=== PATIENT | male | born 1990 | race Caucasian/White ===

== ENCOUNTER 2016-10-30 14:09 | Emergency (ER) | payer BC ==
[2016-10-30 14:26] VITALS: RESP 16
[2016-10-30] MEDS ORDERED: ONDANSETRON 4 MG/2 ML VIAL IVP STA (16:57)
[2016-10-30] MEDS ORDERED: SODIUM CHLORIDE 0.9% 1,000 ML IV ONE (16:57)
[2016-10-30] MEDS ORDERED: MORPHINE SULFATE 4 MG/ML SYRINGE IVP STA (16:57)
[2016-10-30] MEDS ORDERED: KETOROLAC 30 MG/ML 1 ML VIAL IVP STA (16:57)
[2016-10-30] MEDS ORDERED: RX INFO: IV CONTRAST WAS GIVEN 1 EACH MISC MISCELLANE PRN (16:57)
[2016-10-30 17:29] LABS: Appearance,Urine Clear (Clear); Basophils % (A) 0 %; Bilirubin,Urine Negative (Negative); CH 32.6; CHCM 35.3; Eosinophils # (A) 0.1 k/uL (0-0.7); Eosinophils % (A) 1 %; Glucose,Urine (UA) Negative (Negative); HDW 2.67; HGB 15.3 gm/dL (13.0-17.5); Ketones,Urine 1+ (Negative); Leukocyte Esterase,Urine Negative (Negative); Luc # (Auto) 0.08; Luc % (Auto) 1; Lymphocytes # (A) 1.1 k/uL (1.0-4.8); Lymphocytes % (A) 11 %; MCHC 35.6 g/dL (31.0-37.0); MCV 92.6 fL (80.0-100.0); Mean Platelet Volume 7.9; Monocytes # (A) 0.3 k/uL (0-1.0); Monocytes % (A) 3 %; Neutrophils # (A) 8.4 k/uL (1.3-7.7); Neutrophils % (A) 84 %; Nitrite,Urine Negative (Negative); PH, Urine 6.5 (5.0-8.0); Protein,Urine Trace (Negative); RBC 4.65 m/uL (4.30-5.90); RDW 12.8 % (11.5-15.5); Specific Gravity,Urine 1.021 (1.001-1.035); UA Billing (MACRO vs. MICRO) CHEM; WBC (Perox) 9.74
[2016-10-30 17:46] LABS: ALT 37 U/L (21-72); AST 49 U/L (17-59); Alkaline Phosphatase 74 U/L (38-126); Anion Gap 12 mmol/L; Blood Urea Nitrogen 11 mg/dL (9-20); Calcium 9.7 mg/dL (8.4-10.2); Carbon Dioxide 23 mmol/L (22-30); Chloride 108 mmol/L (98-107); Glucose 79 mg/dL (74-99); Non-African American GFR(MDRD) >60 (>60 ml/min/1.73 sqM); Potassium 4.4 mmol/L (3.5-5.1); Sodium 143 mmol/L (137-145); Total Bilirubin 2.2 mg/dL (0.2-1.3); Total Protein 7.2 g/dL (6.3-8.2)
--- NOTE | 2016-10-30 18:30 | CT ---
EXAMINATION TYPE: CT abdomen pelvis w con DATE OF EXAM: 10/30/2016 COMPARISON: NONE HISTORY: Patient complains of LLQ pain. CT DLP: 954.2 mGycm Automated exposure control for dose reduction was used. TECHNIQUE: Helical acquisition of images was performed from the lung bases through the pelvis. CONTRAST: Performed without Oral Contrast and with IV Contrast, patient injected with 100 mL of Omnipaque 300. FINDINGS: Lung bases are clear. There is no pleural effusion. Heart size is normal. Liver spleen pancreas gallbladder appear normal. Bile ducts are not dilated. There is no adrenal mass . Kidneys show satisfactory contrast opacification. There is no hydronephrosis. There is no retroperi toneal adenopathy. There is no ascites. Appendix is not definitely seen. There is no sign of appendicitis. I see no inte stinal wall thickening. There are no dilated loops. Bladder distends smoothly. There are few phleboli ths in the pelvis. I see no pelvic mass. Lumbar spine is intact. IMPRESSION: NEGATIVE CT SCAN OF THE ABDOMEN AND PELVIS.
--- NOTE | 2016-10-30 19:34 | ED ---
Abdominal Pain HPI - General Chief Complaint: Abdominal Pain Stated Complaint: Abd Pain Time Seen by Provider: 10/30/16 16:20 Source: patient Mode of arrival: ambulatory Limitations: no limitations - History of Present Illness Initial Comments: 26-year-old male presenting for evaluation of lower abdominal pain since 12:30 this afternoon. He states he felt well this morning without any complaints however progressively developed the symptoms that were bilateral and suprapubic with associated nausea without vomiting. He further denies any fevers or chills , diarrhea or constipation, dysuria/hematuria, chest pain, shortness of breath. He states he has never had these symptoms before. No medications were taken prior to arrival to the ED. There is no history of abdominal surgeries. - Related Data Home Medications Medication Instructions Recorded Confirmed No Known Home Medications [No 10/30/16 10/30/16 Known Home Medications] Allergies Allergy/AdvReac Type Severity Reaction Status Date / Time No Known Allergies Allergy Verified 10/30/16 16:23 Review of Systems ROS Statement: Those systems with pertinent positive or pertinent negative responses have been documented in the HPI. ROS Other: All systems not noted in ROS Statement are negative. Constitutional: Denies: fever, chills Eyes: Denies: eye pain, eye discharge ENT: Denies: ear pain, throat pain Respiratory: Denies: cough, dyspnea, wheezes Cardiovascular: Denies: chest pain, palpitations Endocrine: Denies: fatigue, heat or cold intolerance Gastrointestinal: Reports: abdominal pain, nausea. Denies: vomiting, diarrhea, constipation, hematemesis, melena Genitourinary: Denies: urgency, dysuria, frequency, hematuria Musculoskeletal: Denies: back pain, arthralgia Skin: Denies: rash, lesions Neurological: Denies: headache, weakness Psychiatric: Denies: anxiety, depression Hematological/Lymphatic: Denies: easy bleeding, easy bruising Past Medical History Past Medical History: No Reported History History of Any Multi-Drug Resistant Organisms: None Reported Past Surgical History: No Surgical Hx Reported Past Psychological History: No Psychological Hx Reported Smoking Status: Never smoker Past Alcohol Use History: None Reported Past Drug Use History: None Reported General Exam Limitations: no limitations General appearance: alert, in no apparent distress Head exam: Present: atraumatic, normocephalic, normal inspection Eye exam: Present: normal appearance, PERRL, EOMI. Absent: scleral icterus, conjunctival injection, periorbital swelling ENT exam: Present: normal exam, mucous membranes moist Neck exam: Present: normal inspection. Absent: tenderness, meningismus, lymphadenopathy Respiratory exam: Present: normal lung sounds bilaterally. Absent: respiratory distress, wheezes, rales, rhonchi, stridor Cardiovascular Exam: Present: regular rate, normal rhythm, normal heart sounds. Absent: systolic murmur, diastolic murmur, rubs, gallop, clicks GI/Abdominal exam: Present: soft, tenderness. Absent: distended, guarding, rebound, rigid Rectal exam: Present: deferred exam: Present: normal inspection, circumcision. Absent: testicular tenderness, urethral discharge, scrotal swelling, vertical testicular lie Extremities exam: Present: normal inspection, full ROM, normal capillary refill. Absent: tenderness, pedal edema, joint swelling, calf tenderness Back exam: Present: normal inspection Neurological exam: Present: alert, oriented X3, CN II-XII intact Psychiatric exam: Present: normal affect, normal mood Skin exam: Present: warm, dry, intact, normal color. Absent: rash Course Vital Signs 10/30/16 10/30/16 14:25 19:42 Temperature 97.8 F 97.6 F Pulse Rate 88 74 Respiratory 16 16 Rate Blood Pressure 138/76 112/55 O2 Sat by Pulse 99 99 Oximetry Medical Decision Making - Medical Decision Making 26-year-old with no past medical or surgical history presented for evaluation of suprapubic and bilateral lower quadrant abdominal pain that started at 12:30 this afternoon. On physical examination he only has mild tenderness to palpation in the lower quadrants worse on the left compared to the right however the abdomen is soft without peritoneal signs of guarding, rigidity, or rebound. Testicular exam reveals no left or right inguinal hernias and bilateral testicles with normal lie and without tenderness. Remainder of his physical exam is benign. Labs are obtained which revealed no significant abnormalities and CT abdomen and pelvis showed no acute process. The patient was reevaluated and had improvement in his symptoms. Through shared decision making it was determined that he be discharged with instructions to follow-up with his primary care physician but to return to this facility if symptoms should worsen or persist. The patient acknowledged an understanding of this information and agreed with this plan of care. - Lab Data Result diagrams: 10/30/16 17:15 10/30/16 17:15 Lab Results 10/30/16 10/30/16 10/30/16 Range/Units 17:15 17:15 17:15 WBC 10.0 (3.8-10.6) k/uL RBC 4.65 (4.30-5.90) m/uL Hgb 15.3 (13.0-17.5) gm/dL Hct 43.0 (39.0-53.0) % MCV 92.6 (80.0-100.0) fL MCH 33.0 (25.0-35.0) pg MCHC 35.6 (31.0-37.0) g/dL RDW 12.8 (11.5-15.5) % Plt Count 262 (150-450) k/uL Neutrophils % 84 % Lymphocytes % 11 % Monocytes % 3 % Eosinophils % 1 % Basophils % 0 % Neutrophils # 8.4 H (1.3-7.7) k/uL Lymphocytes # 1.1 (1.0-4.8) k/uL Monocytes # 0.3 (0-1.0) k/uL Eosinophils # 0.1 (0-0.7) k/uL Basophils # 0.0 (0-0.2) k/uL Sodium 143 (137-145) mmol/L Potassium 4.4 (3.5-5.1) mmol/L Chloride 108 H (98-107) mmol/L Carbon Dioxide 23 (22-30) mmol/L Anion Gap 12 mmol/L BUN 11 (9-20) mg/dL Creatinine 1.10 (0.66-1.25) mg/dL Est GFR (MDRD) Af Amer >60 (>60 ml/min/1.73 sqM) Est GFR (MDRD) Non-Af >60 (>60 ml/min/1.73 sqM) Glucose 79 (74-99) mg/dL Calcium 9.7 (8.4-10.2) mg/dL Total Bilirubin 2.2 H (0.2-1.3) mg/dL AST 49 (17-59) U/L ALT 37 (21-72) U/L Alkaline Phosphatase 74 (38-126) U/L Total Protein 7.2 (6.3-8.2) g/dL Albumin 4.3 (3.5-5.0) g/dL Lipase 172 (23-300) U/L Urine Color Yellow Urine Appearance Clear (Clear) Urine pH 6.5 (5.0-8.0) Ur Specific [place] 1.021 (1.001-1.035) Urine Protein Trace H (Negative) Urine Glucose (UA) Negative (Negative) Urine Ketones 1+ H (Negative) Urine Blood Negative (Negative) Urine Nitrite Negative (Negative) Urine Bilirubin Negative (Negative) Urine Urobilinogen 3.0 (<2.0) mg/dL Ur Leukocyte Esterase Negative (Negative) Disposition Clinical Impression: Abdominal pain Disposition: HOME SELF-CARE Instructions: Abdominal Pain (ED) Referrals: Vijay Noonan MD [Primary Care Provider] - 1-2 days Time of Disposition: 19:34
[2016-10-30 19:43] VITALS: BP 112/55; PULSE 74; TEMP 97.6
== END 2016-10-30 19:47 | disposition home or self-care (01) ==
LOC: EC 14:09
DX: R10.31 Right lower quadrant pain (principal); R10.32 Left lower quadrant pain; R11.0 Nausea
CPT/HCPCS: 99284 ×2; 96374 ×2; 96375 ×3; 96361 ×2; 36415; 80053; 83690; 85025; 81003; 74177; J2270; J2405; J1885; Q9967

== ENCOUNTER 2017-01-03 10:13 | Emergency (ER) | payer BC ==
[2017-01-03 10:16] VITALS: TEMP 98.1
[2017-01-03] MEDS ORDERED: KETOROLAC 60 MG/2 ML VIAL IM STA (10:36)
--- NOTE | 2017-01-03 10:39 | ED ---
General Adult HPI - General Chief complaint: Chest Pain Stated complaint: chest pain Time Seen by Provider: 01/03/17 10:15 Source: patient, RN notes reviewed Mode of arrival: wheelchair Limitations: no limitations - History of Present Illness Initial comments: This is a 26-year-old male who presents emergency Department complaining of a 2 day history of left-sided neck pain and a one-day history of left-sided chest pain. Patient states on Sunday he woke up with what he thought to be a stiff neck hurts to touch her to twist his neck. Patient states this morning he woke up and had chest pain on the left side worse with palpation and definitely worse with twisting. Patient states he lays still it doesn't hurt that bad but if he takes a deep breath or twists the pain definitely increases. Patient states he is not short of breath but it is painful to breathing so he does not take a full breath. Patient denies any fever chills or cough. Patient denies any smoking history. Patient denies any recent injury or trauma that he knows of. 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 Patient states on Sunday he was fine. Patient denies any abdominal pain patient denies nausea vomiting diarrhea. Patient states pressing on the side of his neck or chest reproduces the pain entirely - Related Data Home Medications Medication Instructions Recorded Confirmed Aspirin EC [Ecotrin] 325 mg PO ONCE PRN 01/03/17 01/03/17 Previous Rx's Medication Instructions Recorded Ibuprofen [Motrin] 600 mg PO Q6HR PRN #20 tab 01/03/17 Allergies Allergy/AdvReac Type Severity Reaction Status Date / Time No Known Allergies Allergy Verified 01/03/17 10:42 Review of Systems ROS Statement: Those systems with pertinent positive or pertinent negative responses have been documented in the HPI. ROS Other: All systems not noted in ROS Statement are negative. Past Medical History Past Medical History: No Reported History History of Any Multi-Drug Resistant Organisms: None Reported Past Surgical History: No Surgical Hx Reported Past Psychological History: No Psychological Hx Reported Smoking Status: Never smoker Past Alcohol Use History: None Reported Past Drug Use History: None Reported General Exam - General Exam Comments Initial Comments: GENERAL: Patient is well-developed and well-nourished. Patient is nontoxic and well- hydrated and is in mild distress. ENT: Neck is soft and supple. No significant lymphadenopathy is noted. Oropharynx is clear. Moist mucous membranes. Palpating the left sternocleidomastoid muscle reproduces his neck pain. EYES: The sclera were anicteric and conjunctiva were pink and moist. Extraocular movements were intact and pupils were equal round and reactive to light. Eyelids were unremarkable. PULMONARY: Unlabored respirations. Good breath sounds bilaterally. No audible rales rhonchi or wheezing was noted. CARDIOVASCULAR: There is a regular rate and rhythm without any murmurs gallops or rubs. Patient 's chest pain is reproducible on palpation ABDOMEN: Soft and nontender with normal bowel sounds. No palpable organomegaly was noted. There is no palpable pulsatile mass. SKIN: Skin is clear with no lesions or rashes and otherwise unremarkable. NEUROLOGIC: Patient is alert and oriented x3. Cranial nerves II through XII are grossly intact. Motor and sensory are also intact. Normal speech, volume and content. Symmetrical smile. MUSCULOSKELETAL: Normal extremities with adequate strength and full range of motion. LYMPHATICS: No significant lymphadenopathy is noted PSYCHIATRIC: Normal psychiatric evaluation. Normal interpersonal interactions appears functionally intact in deals appropriately with others. No signs of depression. No signs of anxiety. Limitations: no limitations Course Vital Signs 01/03/17 01/03/17 01/03/17 10:15 11:10 11:14 Temperature 98.1 F Pulse Rate 78 74 Respiratory 20 20 20 Rate Blood Pressure 126/78 128/74 O2 Sat by Pulse 100 100 Oximetry Medical Decision Making - Medical Decision Making EKG shows normal sinus rhythm at 80 bpm DE interval is on a 42 QRS is 88 QT interval 384 QTC is 442. Patient's EKG shows no ST segment elevation or depression or T-wave abnormality is noted. Chest x-ray shows no acute abnormality. Disposition Clinical Impression: Musculoskeletal chest pain Disposition: HOME SELF-CARE Condition: Good Instructions: Chest Wall Pain (ED) Prescriptions: Ibuprofen [Motrin] 600 mg PO Q6HR PRN #20 tab PRN Reason: For pain Referrals: Vijay Noonan MD [Primary Care Provider] - 1-2 days Time of Disposition: 11:32
--- NOTE | 2017-01-03 11:04 | XR ---
EXAMINATION TYPE: XR chest 2V DATE OF EXAM: 01/03/2017 COMPARISON: NONE HISTORY: Chest pain TECHNIQUE: Frontal and lateral views of the chest are obtained. FINDINGS: There is no focal air space opacity. No evidence for pneumothorax. No pleural effusion. The cardiac silhouette size is within normal limits. The osseous structures are grossly intact. IMPRESSION: 1. No acute cardiopulmonary process.
[2017-01-03 11:46] VITALS: BP 127/77; PULSE 77; RESP 16
== END 2017-01-03 11:46 | disposition home or self-care (01) ==
LOC: EC 10:13
DX: R07.89 Other chest pain (principal); M54.2 Cervicalgia
CPT/HCPCS: 93005; 71020; 99285; 96372; J1885

== ENCOUNTER → 2022-02-24 | Outpatient (CLI) | payer BC ==
--- NOTE | 2022-02-24 07:49 | US ---
EXAMINATION TYPE: US abdomen limited DATE OF EXAM: 02/24/2022 COMPARISON: CT abdomen and pelvis 2017 CLINICAL HISTORY: R10.9 ABD PAIN. TECHNIQUE: Multiple sonographic images of the left upper quadrant are obtained. FINDINGS: EXAM MEASUREMENTS: Spleen: 11.8 cm Left Kidney: 10.0 x 4.8 x 4.9 cm ACCESS REP NOTES: 1. Spleen: wnl 2. Left Kidney: multiple echogenic foci may represent stones Normal-sized spleen. Left kidney normal in size without hydronephrosis. Hyperechoic foci could reflec t nonobstructing renal calculi. Patients palpable at LUQ also scanned, no concerning solid or cystic mass or abnormal fluid collection noted. No hernia is evident. IMPRESSION: As above. Possible new nonobstructing left-sided nephrolithiasis otherwise unremarkable.
== END | disposition home or self-care (01) ==
LOC: RADUSWWP 07:07
PROVIDERS: ATTEND Family Medicine
DX: R10.9 Unspecified abdominal pain (principal)
CPT/HCPCS: 76705

== ENCOUNTER → 2022-03-08 | Outpatient (CLI) | payer BC ==
--- NOTE | 2022-03-08 15:49 | CT ---
EXAMINATION TYPE: CT abdomen pelvis wo con DATE OF EXAM: 03/08/2022 COMPARISON: 10/30/2016 INDICATION: h/o renal stones, pressure and bulging in abdomen DLP: 909.2 mGycm, Automated exposure control for dose reduction was used. CONTRAST: 0 mL of Isovue 300. Study performed without Oral Contrast TECHNIQUE: Axial images were obtained from above the diaphragm to the pubic rami in the axial plane a t 5 mm thick sections. Reconstructed images are reviewed on the computer in the coronal plane. FINDINGS: Limited CT sections are obtained the lung bases. The lung bases are clear. CT ABDOMEN: Tiny umbilical hernia containing mesenteric fat without loops of bowel may be present. An terior abdominal wall otherwise appears intact. Subcutaneous tissues appear normal. Liver: Normal Spleen: Normal Pancreas: Normal Adrenal glands: The adrenal glands are normal. Gallbladder: Normal Kidneys: No masses are evident. No hydronephrosis is present. No cysts are present. No renal or ur eteral stones are evident. Aorta: Normal Inferior vena cava: Normal. CT PELVIS: Loops of bowel within the abdomen and pelvis are normal. Few scattered diverticuli are present. Th is study is a lateral contrast limiting bowel evaluation. Appendix: Normal as visualized. Urinary bladder: Decompressed limiting evaluation. Genitourinary structures: Prostate contains calcifications and mild prominence. Osseous structures: No suspicious lytic or sclerotic lesions. IMPRESSIONS: 1. There may be a tiny periumbilical mesenteric fat containing hernia. 2. Mild prominence of the prostate. 3. Few scattered diverticuli without evidence of acute diverticulitis.
== END | disposition home or self-care (01) ==
LOC: RADCTMAIN 08:04
PROVIDERS: ATTEND Family Medicine
DX: N20.0 Calculus of kidney (principal)
CPT/HCPCS: 74176